=== PATIENT | female | born 1970 | race Asian ===

== ENCOUNTER 2017-04-07 12:41 | Emergency (ER) | payer OTHER ==
[~2017-04-07] VITALS: Wt 80.0 kg
[2017-04-07] MEDS ORDERED: morphine 4 MG/ML VIAL IV STA (15:48)
[2017-04-07] MEDS ORDERED: ONDANSETRON 4 MG INJ IV STA (15:48)
[2017-04-07 16:15] LABS: BASOPHILS % 0.5 % (0.0-2.0); EOSINOPHILS % 0.4 % (0.0-7.0); HEMATOCRIT 41.9 % (37.0-47.0); HEMOGLOBIN 13.6 g/dl (12.0-16.0); LYMPHOCYTES # 1.8 10^3/ul (0.8-2.9); LYMPHOCYTES % 21.9 % (15.0-51.0); MEAN CORPUSCULAR HEMOGLOBIN 27.1 pg (29.0-33.0); MEAN CORPUSCULAR HGB CONC 32.5 g/dl (32.0-37.0); MEAN CORPUSCULAR VOLUME 83.6 fl (82.0-101.0); MEAN PLATELET VOLUME 9.6 fl (7.4-10.4); MONOCYTE # 0.6 10^3/ul (0.3-0.9); MONOCYTES % 7.9 % (0.0-11.0); NEUTROPHIL # 5.5 10^3/ul (1.6-7.5); NEUTROPHILS % 69.2 % (39.0-77.0); PLATELET COUNT 326 10^3/UL (140-415); RED BLOOD COUNT 5.01 10^6/ul (4.20-5.40); RED CELL DISTRIBUTION WIDTH 14.5 % (11.5-14.5)
[2017-04-07 16:32] LABS: ADD UMIC YES; UR ASCORBIC ACID NEGATIVE (NEGATIVE); UR BACTERIA FEW /HPF (NONE SEEN); UR BILIRUBIN (Dip) NEGATIVE (NEGATIVE); UR BLOOD (Dip) 2+ mg/dL (NEGATIVE); UR CLARITY SLIGHTLY CLOUDY (CLEAR); UR COLOR YELLOW (YELLOW); UR GLUCOSE (Dip) NEGATIVE (NEGATIVE); UR KETONES (Dip) NEGATIVE (NEGATIVE); UR LEUKOCYTE ESTERASE (Dip) 3+ Leu/ul (NEGATIVE); UR NITRITE (Dip) NEGATIVE (NEGATIVE); UR RBC 2 /HPF (0-5); UR SPECIFIC GRAVITY (Dip) 1.015 (1.003-1.030); UR SQUAMOUS EPITHELIAL CELL FEW /HPF (FEW); UR TOTAL PROTEIN (Dip) NEGATIVE (NEGATIVE); UR UROBILINOGEN (Dip) 1+ mg/dL (NEGATIVE)
[2017-04-07 17:00] LABS: ALBUMIN 5.1 g/dl (3.3-4.9); ALBUMIN/GLOBULIN RATIO 1.24; BILIRUBIN,INDIRECT 0.7 mg/dl (0-1.1); BILIRUBIN,TOTAL 0.7 mg/dl (0.2-1.3); CALCIUM 9.8 mg/dl (8.4-10.2); CREATININE 0.72 mg/dl (0.44-1.00); POTASSIUM 3.7 mmol/L (3.5-5.1); TOTAL PROTEIN 9.2 g/dl (6.1-8.1)
--- NOTE | 2017-04-07 18:03 | RADRPT ---
PROCEDURE: CT Abdomen and Pelvis without contrast. CLINICAL INDICATION: Abdominal and pelvic pain. TECHNIQUE: CT scan of the abdomen and pelvis without contrast was performed. Coronal and sagittal reformatted images were obtained from the axial source images. Images were reviewed on a high-resolu tion PACS workstation. Total exam DLP is 329.13 mGy-cm. CTDIvol is 6.24 mGy. One or more of the fo llowin dose reduction techniques were used: Automated exposure control, adjustment of the mA and/or kV according to patient size, use of iterative reconstruction technique. DICOM images are available . COMPARISON: None. FINDINGS: The lung bases are normal. There is no pleural effusion. The liver is normal in size and attenuation. There is a small benign cyst anteriorly in the left hep atic lobe measuring 1.2 cm. There is no other focal hepatic lesion. The gallbladder and bile ducts are normal. The spleen is normal in size. There is no focal splenic lesion. Both adrenals are normal with no enlargement or mass. The pancreas is unremarkable with no mass or evidence of pancreatitis. There is no renal mass or hydronephrosis. There is a nonobstructing 0.1 cm calculus in the upper le ft kidney no other renal calculus or ureteral calculus. The abdominal aorta is not dilated. There is calcification in the aorta consistent with atherosclero sis. There is no retroperitoneal lymphadenopathy or mass. There is a possible mass versus nonopacified bowel in the left adnexa measuring 4.0 x 4.3 cm. There is no other pelvic mass or lymphadenopathy. The bladder and distal ureters are normal. The periappendiceal region is unremarkable with no evidence of appendicitis. The appendix is well se en and appears normal. The bowel and mesentery are normal. There is no free fluid or free gas. The osseous structures are unremarkable with no fracture or lytic lesion. IMPRESSION: 1. Benign cyst in the left hepatic lobe. 2. Atherosclerosis. 3. Normal appendix. 4. Nonobstructing 0.1 cm calculus in the upper left kidney. 5. Possible left adnexal mass measuring 4.0 x 4.3 cm. Correlation with pelvic ultrasound advised. 6. Otherwise unremarkable noncontrast CT scan of the abdomen and pelvis. RPTAT: QQ .Johnnie Marroquin MD, MD Date Time Electronically viewed and signed by .Johnnie Marroquin MD, on 04/07/2017 18:03 .R/
--- NOTE | 2017-04-07 18:40 | RADRPT ---
PROCEDURE: Right upper quadrant abdominal ultrasound. CLINICAL INDICATION: Abdominal pain TECHNIQUE: Bailey scale and color doppler ultrasound images of the right upper quadrant of the abdom en. COMPARISON: CT 04/07/2017 FINDINGS: Pancreas: Visualized portions appear of normal echogenicity without focal lesions. Liver: Morphology:Normal in size. Contour:Normal, no evidence of nodularity. Echogenicity: Normal. Focal lesions: 1.6 cm benign-appearing cyst. Main portal vein: Patent with hepatopetal flow. Biliary System: Gallbladder wall: Normal thickness. Gallstones: Present. Intrahepatic bile ducts: Normal caliber. Common bile duct diameter (mm): 5.2 Kidneys: Right length (cm) : 9.6 Right cortical thickness: Normal. Echogenicity: Normal. Hydronephrosis: None. Renal calculi: None. Focal lesions: None. Free fluid/ascites: None. Abdominal aorta: Not visualized by the pit shovel operator. Other findings: None. IMPRESSION: Cholelithiasis without evidence of abnormal gallbladder wall thickening to suggest cholecystitis. Normal caliber of the intrahepatic and extrahepatic biliary system. RPTAT: AADD .Piotr Shepherd MD, MD Date Time Electronically viewed and signed by .Piotr Shepherd MD, on 04/07/2017 18:39 .B/
--- NOTE | 2017-04-07 18:43 | ERD ---
ER Documentation Chief Complaint Chief Complaint AP, HAS GALLSTONES HPI This is a 46-year-old female who presents the emergency department today complaining of abdominal pain for the past 3 days. Patient states she has known gallstones for the past 5 years but has not felt anything in at least a year. Denies any fevers or chills, vomiting, dysuria. ROS All systems reviewed and are negative except as per history of present illness. Medications Home Meds Active Scripts Cephalexin* (Keflex*) 500 Mg Capsule, 500 MG PO QID for 7 Days, CAP Prov:MISTY WADSWORTH PA-C 04/07/17 Naproxen* (Naprosyn*) 500 Mg Tablet, 500 MG PO BID Y for PAIN AND/OR INFLAMMATION, #30 TAB Prov:MISTY WADSWORTH PA-C 04/07/17 Tramadol HCl (Tramadol HCl) 50 Mg Tablet, 50 MG PO Q4 Y for PAIN, #20 TAB Prov:MISTY WADSWORTH PA-C 04/07/17 Allergies Allergies: Coded Allergies: No Known Allergy (Unverified , 04/07/17) PMhx/Soc Medical and Surgical Hx: pt denies Medical Hx History of Surgery: No Anesthesia Reaction: No Hx Neurological Disorder: No Hx Respiratory Disorders: No Hx Cardiac Disorders: Yes (borderline diabetes) Hx Psychiatric Problems: No Hx Miscellaneous Medical Probl: Yes (cholelithiasis) Hx Alcohol Use: No Hx Substance Use: No Hx Tobacco Use: No Smoking Status: Never smoker Physical Exam Vitals Vital Signs Date Time Temp Pulse Resp B/P Pulse Ox O2 Delivery O2 Flow Rate FiO2 04/07/17 12:48 99.0 94 18 145/69 98 Physical Exam Const: NAD Head: Atraumatic Eyes: Normal Conjunctiva ENT: Normal External Ears, Nose and Mouth. Neck: Full range of motion..~ No meningismus. Resp: Clear to auscultation bilaterally Cardio: Regular rate and rhythm, no murmurs Abd: Soft, periumbilical tenderness non distended. Normal bowel sounds. No tenderness at McBurney's Skin: No petechiae or rashes Back: No midline or flank tenderness Ext: No cyanosis, or edema Neur: Awake and alert Psych: Normal Mood and Affect Result Diagram: 04/07/17 1600 04/07/17 1600 Results 24 hrs Laboratory Tests Test 04/07/17 16:00 White Blood Count 8.010^3/ul Red Blood Count 5.0110^6/ul Hemoglobin 13.6g/dl Hematocrit 41.9% Mean Corpuscular Volume 83.6fl Mean Corpuscular Hemoglobin 27.1pg Mean Corpuscular Hemoglobin Concent 32.5g/dl Red Cell Distribution Width 14.5% Platelet Count 00079^3/UL Mean Platelet Volume 9.6fl Neutrophils % 69.2% Lymphocytes % 21.9% Monocytes % 7.9% Eosinophils % 0.4% Basophils % 0.5% Nucleated Red Blood Cells % 0.0/100WBC Neutrophils # 5.510^3/ul Lymphocytes # 1.810^3/ul Monocytes # 0.610^3/ul Eosinophils # 0.010^3/ul Basophils # 0.010^3/ul Nucleated Red Blood Cells # 0.010^3/ul Urine Color YELLOW Urine Clarity SLIGHTLY CLOUDY Urine pH 7.0 Urine Specific [place] 1.015 Urine Ketones NEGATIVEmg/dL Urine Nitrite NEGATIVEmg/dL Urine Bilirubin NEGATIVEmg/dL Urine Urobilinogen 1+mg/dL Urine Leukocyte Esterase 3+Toña/ul Urine Microscopic RBC 2/HPF Urine Microscopic WBC 38/HPF Urine Squamous Epithelial Cells FEW/HPF Urine Bacteria FEW/HPF Urine Hemoglobin 2+mg/dL Urine Glucose NEGATIVEmg/dL Urine Total Protein NEGATIVEmg/dl Sodium Level 142mmol/L Potassium Level 3.7mmol/L Chloride Level 105mmol/L Carbon Dioxide Level 23mmol/L Anion Gap 18 Blood Urea Nitrogen 9mg/dl Creatinine 0.72mg/dl Glucose Level 119mg/dl Calcium Level 9.8mg/dl Total Bilirubin 0.7mg/dl Direct Bilirubin 0.00mg/dl Indirect Bilirubin 0.7mg/dl Aspartate Amino Transf (AST/SGOT) 392IU/L Alanine Aminotransferase (ALT/SGPT) 191IU/L Alkaline Phosphatase 158IU/L Total Protein 9.2g/dl Albumin 5.1g/dl Globulin 4.10g/dl Albumin/Globulin Ratio 1.24 Lipase 151U/L Current Medications Medications (Trade) Dose Ordered Sig/Yuliana Route PRN Reason Start Time Stop Time Status Last Admin Dose Admin Morphine Sulfate (morphine) 4 mg ONCE STAT IV 04/07/17 15:48 04/07/17 15:50 DC 12/27/17 16:10 Ondansetron HCl (Zofran Inj) 4 mg ONCE STAT IV 04/07/17 15:48 04/07/17 15:50 DC 04/07/17 16:09 DIAGNOSTIC IMAGING REPORT Patient: PANKAJ CELESTE : 1970 Age: 46 Sex: F MR #: [id number] DOS: 04/07/17 0000 Ordering MD: MISTY WADSWORTH PA-C Location: [facility] Room/Bed: PROCEDURE: Right upper quadrant abdominal ultrasound. CLINICAL INDICATION: Abdominal pain TECHNIQUE: Bailey scale and color doppler ultrasound images of the right upper quadrant of the abdomen. COMPARISON: CT 04/07/2017 FINDINGS: Pancreas: Visualized portions appear of normal echogenicity without focal lesions. Liver: Morphology:Normal in size. Contour:Normal, no evidence of nodularity. Echogenicity: Normal. Focal lesions: 1.6 cm benign-appearing cyst. Main portal vein: Patent with hepatopetal flow. Biliary System: Gallbladder wall: Normal thickness. Gallstones: Present. Intrahepatic bile ducts: Normal caliber. Common bile duct diameter (mm): 5.2 Kidneys: Right length (cm) : 9.6 Right cortical thickness: Normal. Echogenicity: Normal. Hydronephrosis: None. Renal calculi: None. Focal lesions: None. Free fluid/ascites: None. Abdominal aorta: Not visualized by the lab director. Other findings: None. IMPRESSION: Cholelithiasis without evidence of abnormal gallbladder wall thickening to suggest cholecystitis. Normal caliber of the intrahepatic and extrahepatic biliary system. RPTAT: AADD .Piotr Shepherd MD, MD Date Time Electronically viewed and signed by .Piotr Shepherd MD, MD on 04/07/2017 18:39 .B/ CC: MISTY WADSWORTH PA-C DIAGNOSTIC IMAGING REPORT Patient: PANKAJ CELESTE : 1970 Age: 46 Sex: F MR #: [id number] [facility] #: [id number] DOS: 04/07/17 1548 Ordering MD: MISTY WADSWORTH PA-C Location: [facility] Room/Bed: PROCEDURE: CT Abdomen and Pelvis without contrast. CLINICAL INDICATION: Abdominal and pelvic pain. TECHNIQUE: CT scan of the abdomen and pelvis without contrast was performed. Coronal and sagittal reformatted images were obtained from the axial source images. Images were reviewed on a high-resolution PACS workstation. Total exam DLP is 329.13 mGy-cm. CTDIvol is 6.24 mGy. One or more of the following dose reduction techniques were used: Automated exposure control, adjustment of the mA and/or kV according to patient size, use of iterative reconstruction technique. DICOM images are available. COMPARISON: None. FINDINGS: The lung bases are normal. There is no pleural effusion. The liver is normal in size and attenuation. There is a small benign cyst anteriorly in the left hepatic lobe measuring 1.2 cm. There is no other focal hepatic lesion. The gallbladder and bile ducts are normal. The spleen is normal in size. There is no focal splenic lesion. Both adrenals are normal with no enlargement or mass. The pancreas is unremarkable with no mass or evidence of pancreatitis. There is no renal mass or hydronephrosis. There is a nonobstructing 0.1 cm calculus in the upper left kidney no other renal calculus or ureteral calculus. The abdominal aorta is not dilated. There is calcification in the aorta consistent with atherosclerosis. There is no retroperitoneal lymphadenopathy or mass. There is a possible mass versus nonopacified bowel in the left adnexa measuring 4.0 x 4.3 cm. There is no other pelvic mass or lymphadenopathy. The bladder and distal ureters are normal. The periappendiceal region is unremarkable with no evidence of appendicitis. The appendix is well seen and appears normal. The bowel and mesentery are normal. There is no free fluid or free gas. The osseous structures are unremarkable with no fracture or lytic lesion. IMPRESSION: 1. Benign cyst in the left hepatic lobe. 2. Atherosclerosis. 3. Normal appendix. 4. Nonobstructing 0.1 cm calculus in the upper left kidney. 5. Possible left adnexal mass measuring 4.0 x 4.3 cm. Correlation with pelvic ultrasound advised. 6. Otherwise unremarkable noncontrast CT scan of the abdomen and pelvis. RPTAT: QQ .Johnnie Marroquin MD, Date Time Electronically viewed and signed by .Johnnie Marroquin MD, MD on 04/07/2017 18:03 .R/ CC: MISTY WADSWORTH PA-C DIAGNOSTIC IMAGING REPORT Patient: PANKAJ CELESTE : 1970 Age: 46 Sex: F MR #: [id number] DOS: 04/07/17 0000 Ordering MD: MISTY WADSWORTH PA-C Location: [facility] Room/Bed: PROCEDURE: US Pelvis. CLINICAL INDICATION: pelvic pain TECHNIQUE: Multiple sonographic images of the pelvis were obtained utilizing a transabdominal and endovaginal technique. The images were reviewed on a PACS workstation. COMPARISON: US ABDOMEN 04/07/2017; CT 04/07/2017 FINDINGS: The uterus is normal in size with a normal appearance of the myometrium. The uterus measures 9.9 x 5.9 x 6.4 cm. The endometrial stripe is slightly heterogeneous in appearance and has the thickness of 15 mm. There are Nabothian cysts in the cervix. Normal Doppler flow is identified in both ovaries. The right ovary measures 2.8 x 1.0 x 1.8 cm. The left ovary measures 5.6 x 4.4 x 4.6 cm. There are multiple complex cysts in the left ovary with internal debris. The largest cyst measures 3.3 x 2.3 cm. No free fluid is present within the pelvis. RPTAT: AA IMPRESSION: Enlarged left ovary with multiple complex cysts, some of which have septations and some with internal debris/hemorrhage. The largest cyst measures 3.3 cm. Follow-up in 6 weeks is recommended. Slightly heterogeneous endometrium. .Peña Leon MD, MD Date Time Electronically viewed and signed by .Peña Leon MD, MD on 04/07/2017 19: 06 .S/ CC: MISTY WADSWORTH PA-C Procedures/[facility] This 46-year-old female who presents the emergency department today for abdominal pain for the past 3 days. Patient has a known history of gallstones the past 5 years but has not had any problems" at least a year". States she has seen her primary care doctor about it but was never referred to general surgeon. On physical exam patient had periumbilical tenderness and she really did not have much right upper quadrant pain and therefore I did obtain a CT abdomen pelvis noncontrast additional laboratory workup. Laboratory workup shows no elevated white blood cell count. She is not anemic. Platelets are within normal limits. Electrolytes are within normal limits. Glucose is within normal limits. Bilirubin is within normal limits. Liver enzymes are significantly elevated. Lipase is within normal limits. UA shows 3+ leukocyte esterase and 38 microscopic white blood cells. test is negative CT abdomen pelvis noncontrast shows a benign cyst in the left hepatic lobe. There is atherosclerosis. There is normal. Appendix. There is a nonobstructing 0.1 cm calculus in the upper left kidney. There is a possible left adnexal mass measuring 4 x 4.3 cm. Correlation with pelvic ultrasound was recommended. There is no free fluid or free gas. CT scan indicated that the gallbladder bile ducts were normal. Patient had significantly elevated liver enzymes and therefore I did obtain a right upper quadrant ultrasound as well as a pelvic ultrasound as was recommended by the CT scan. Right upper quadrant ultrasound shows gallstones without evidence of abnormal gallbladder wall thickening to suggest cholecystitis. There is normal caliber of intrahepatic and extrahepatic biliary system. The common bile duct measures 5.2 mm in maximal dimension. Pelvic ultrasound shows an enlarged left ovary with multiple complex cysts some which have septations and some with internal debris and hemorrhage. The largest cyst measures 3.3 cm. A follow-up in 6 weeks is recommended. There is no free fluid. There is normal Doppler flow in both ovaries Low suspicion for acute surgical abdomen, to ovarian torsion, tubo-ovarian abscess. Patient symptoms at this time is consistent with 1) gallstone 2) urinary tract infection 3) elevated liver enzymes 4) ovarian cysts. Patient will be given a short course of tramadol, Naprosyn, Keflex. Explained all results to the patient. I have explained her that she needs to see both a GI specialist, general surgeon and a securities sales associate. Patient was given a list of referrals. At this time the patient is stable for discharge and outpatient management. Patient should follow up with their PCP in the next 1-2 days. They may return to the emergency department sooner for any persistent or worsening of symptoms. Patient understood and agreed with the plan. Departure Diagnosis: Primary Impression: Gallstones Additional Impression: UTI (urinary tract infection) Urinary tract infection type: site unspecified Hematuria presence: without hematuria Qualified Code: N39.0 - Urinary tract infection without hematuria, site unspecified Condition: Fair MISTY WADSWORTH PA-C Apr 07, 2017 18:43
--- NOTE | 2017-04-07 19:06 | RADRPT ---
PROCEDURE: US Pelvis. CLINICAL INDICATION: pelvic pain TECHNIQUE: Multiple sonographic images of the pelvis were obtained utilizing a transabdominal and endovaginal technique. The images were reviewed on a PACS workstation. COMPARISON: US ABDOMEN 04/07/2017; CT 04/07/2017 FINDINGS: The uterus is normal in size with a normal appearance of the myometrium. The uterus measures 9.9 x 5.9 x 6.4 cm. The endometrial stripe is slightly heterogeneous in appearance and has the thickness of 15 mm. There are Nabothian cysts in the cervix. Normal Doppler flow is identified in both ovaries. The right ovary measures 2.8 x 1.0 x 1.8 cm. The left ovary measures 5.6 x 4.4 x 4.6 cm. There are multiple complex cysts in the left ovary with internal debris. The largest cyst measures 3.3 x 2.3 cm. No free fluid is present within the pelvis. RPTAT: AA IMPRESSION: Enlarged left ovary with multiple complex cysts, some of which have septations and some with interna l debris/hemorrhage. The largest cyst measures 3.3 cm. Follow-up in 6 weeks is recommended. Slightly heterogeneous endometrium. .Peña Leon MD, Date Time Electronically viewed and signed by .Peña Leon MD, MD on 04/07/2017 19:06 .S/
[2017-04-07] MEDS ORDERED: NAPR-260 PO (19:19)
[2017-04-07] MEDS ORDERED: CEPH-443 PO (19:19)
[2017-04-07] MEDS ORDERED: TRAM50TA2 PO (19:19)
[2017-04-07 19:45] VITALS: BP 138/69; PULSE 70; RESP 18; TEMP 99
== END 2017-04-07 19:45 | disposition home or self-care (01) ==
LOC: FTE 12:41
DX: K80.20 Calculus of gallbladder without cholecystitis without obstruction (principal); N39.0 Urinary tract infection, site not specified; R10.2 Pelvic and perineal pain
CPT/HCPCS: 36415; 74176; 76705; 76830; 76856; 80053; 81001; 83690; 85025; 96374; 96375; J2270; J2405; Z7502

== ENCOUNTER 2017-06-21 05:41 | Day surgery (SDC) | END 2017-06-21 17:29 | disposition home or self-care (01) ==